=== PATIENT | male | born 1970 | race Caucasian/White ===

== ENCOUNTER 2022-06-03 10:32 | Emergency (ER) | payer MEDICAID, SELFPAY ==
[2022-06-03] VITALS (11 sets, daily range): BP systolic 97–105; BP diastolic 70–81; PULSE 75–86; RESP 14–16; TEMP 36.3–36.4; O2SAT 98–100; BMI 27.8
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
[2022-06-03 12:48] LABS: Absolute Neutrophil Count 3.5 X10^3/uL (2.0-7.7); Hematocrit 45.5 % (40-54); Hemoglobin 15.8 g/dL (13.0-16.5); Lymphocyte % 30.4 % (19-41); Mean Corp Hgb Conc 34.7 g/dL (32-36); Mean Corpuscular Hgb 32.6 pg (27.0-32.0); Mean Corpuscular Volume 93.8 fL (80-94); Mean Platelet Vol. 8.6 fl (6.2-12.0); Monocyte# 0.37 X10^3/uL; Monocyte% 6.6 % (0-10); NRBC Flagged by Analyzer 0 % (0-5); Neutrophil # 3.51 X10^3/uL (2.7-7.7); Neutrophil % 62.6 % (47-70); Platelet Count 183 K/mm3 (150-450); RBC Distribution Width CV 13.4 % (11.6-14.6); RBC Distribution Width SD 45.8 fl (35.1-43.9); Red Blood Count 4.85 M/mm3 (4.6-6.2); White Blood Count 5.6 K/mm3 (4.4-11.0)
--- NOTE | 2022-06-03 12:56 | EKG12_ITS ---
Test Reason : MEDICAL CLEARANCE Blood Pressure : / mmHG Vent. Rate : 083 BPM Atrial Rate : 083 BPM P-R Int : 140 ms QRS Dur : 084 ms QT Int : 380 ms P-R-T Axes : 057 017 058 degrees QTc Int : 446 ms Normal sinus rhythm Low voltage QRS Borderline ECG Confirmed by MICHELLE ADHIKARI, HYUN ([id number]), electronic news gathering editor SHEYLA WAGNER ([id number]) on 06/04/2022 2:20:06 PM Referred By: Confirmed By:HYUN MARTINEZ MD
[2022-06-03 12:59] LABS: Anion Gap 5 (5-15); BUN 14 mg/dL (7-18); BUN/Creat Ratio 14.8 RATIO (10-20); Calcium,Total 8.9 mg/dL (8.5-10.1); Chloride 106 mmol/L (98-107); Creatinine, Serum 0.95 mg/dL (0.70-1.30); EST Glomerular Filtration Rate 89 mL/min (>60); Est Glom Filt Rate - Afr Amer 108 mL/min (>60); Estimated Creatinine Clearance 99.08 ml/min; Glucose 89 mg/dL (74-106); Potassium 3.5 mmol/L (3.5-5.1); Sodium Level 142 mmol/L (136-145)
[2022-06-03 13:24] LABS: Amphetamine Urine VISTA POSITIVE (<1000 ng/mL); Barbiturate Urine VISTA NEGATIVE (< 200 ng/mL); Benzodiazepine Urine VISTA NEGATIVE (< 200 ng/mL); Cocaine Urine VISTA NEGATIVE (< 300 ng/mL); Ecstacy Urine VISTA NEGATIVE (< 500 ng/mL); Methadone Urine VISTA NEGATIVE (< 300 ng/mL); PCP Urine VISTA NEGATIVE (< 25 ng/mL); THC Urine VISTA NEGATIVE (< 50 ng/mL); Vista UDS pH Range 6
--- NOTE | 2022-06-03 13:34 | CM.ED ---
NEAL Note: NEAL called [facility]. geology instructor off floor however, staff indicate they had open beds. NEAL faxed referral to [facility]. NEAL called [facility]. No beds. NEAL called [facility]. No beds. NEAL called [facility]. They have beds but do not take medicaid. NEAL called [facility]. No psych beds available. NEAL called Anna at [facility]. [facility] has no beds and she stated [facility] has no beds. NEAL called [facility]. No male beds. NEAL called [facility] and left voice mail. Elizabet SRIVASTAVA
[2022-06-03 14:39] LABS: CPK Total, Creatine Kinase 57 U/L (39-308)
--- NOTE | 2022-06-03 15:25 | CM.ED ---
NEAL Note NEAL called blanca Meadows RN at [facility]. NEAL updated her with the results of COVID (negative and which had previously been sent to [facility]) and CK level. Elizabet SRIVASTAVA
--- NOTE | 2022-06-03 15:26 | CM.ED ---
NEAL called [facility]. They have beds per Joel. ENAL faxed referral. NEAL received voice mail from [facility]. They have no beds at [facility] for psych Eilzabet SRIVASTAVA
--- NOTE | 2022-06-03 15:59 | ED.RN ---
Patient sleeping in bed for past several hours, denies needs on wakening. Vitals updated, patient updated on waiting for acceptance [facility].
--- NOTE | 2022-06-03 17:47 | CM.ED ---
NEAL Note NEAL called Zakia at [facility]. She said that she had just received the referral and was getting ready to call the provider. Neal received call from Zakia at [facility]. Dr. Torres had accepted patient. Zakia inquired if patient would sign voluntary. MD has already completed pink slip if needed. NEAL met with patient. Patient's concern was that he had access to his phone for the inspector electromechanical. SW explained that the focus needs to be treatment. Patient was advised that average length of stay is 3-5 days. NEAL spoke to Zakia at [facility]. She said that they would need an MD order for access to email but it had happened before and she did not feel it would be an issues. NEAL updated patient. Patient signed voluntary consent for treatment and it was faxed to [facility]. NEAL gave patient brochure on [facility]. SW received call from Zakia at [facility]. The SW has entered patient's insurance and they are ready for patient to come. Patient is going to Room 3306. RN to RN is [phone]. NEAL updated monorail charger operator and MARIZOL Kay. NEAL updated MD Juan. NELA updated Adilene that transport could be called for patient. NEAL updated patient that transport is being called. Of note, NEAL has NOT received call back from patient's mothers. Plan: [facility] Elizabet SRIVASTAVA
--- NOTE | 2022-06-03 18:23 | CM.ED ---
SW was advised by the special investigation unit investigator in triage that patient's mother wanted to speak to healthcare social worker. SW met with patient to get consent to speak to his mom and his mother was in the room. Mother said can he be released in my custody? and healthcare social worker said no. Mother inquired about transportation home from facility and healthcare social worker encouraged patient to speak to healthcare social worker at the facility regarding transportation. Of note, patient had earlier given this senior technical writer permission to speak to his mother. Elizabet SRIVASTAVA
--- NOTE | 2022-06-03 18:31 | ED.RN ---
Report called to Nany @ [facility] [id number]
--- NOTE | 2022-06-04 13:25 | CM.ED ---
Social Work Note SW received message from Jon at [facility] stating he received a referral and asking if pt still needs placement. NEAL reviewed chart, pt was sent to [facility]. NEAL placed a call to [facility] and updated to disregard referral. Miranda Mittal OPTOELECTRONICS ENGINEER, MANAGER BUSINESS CONTINUITY
== END 2022-06-03 22:08 ==
PROVIDERS: Emergency Provider Emergency Medicine; PCP Family Medicine; Visit Provider Emergency Medicine
DX: R45.851 Suicidal ideations (principal); F32.A Depression, unspecified; F41.9 Anxiety disorder, unspecified; Z79.899 Other long term (current) drug therapy
CPT/HCPCS: 80048; 80307; 82077; 82550; 85025; 87428; 93005; 99285